=== PATIENT | female | born 2000 | race African-American/Black ===

== ENCOUNTER 2022-07-01 20:35 | Emergency (ER) | payer SELFPAY ==
[~2022-07-01] VITALS: Ht 170.2 cm; Wt 57.7 kg
[2022-07-01 21:24] VITALS: BP 129/75
[2022-07-01] MEDS ORDERED: HYDR-3831 PO (21:27)
== END 2022-07-02 00:07 | disposition left against medical advice (07) ==
LOC: EMS 20:37
DX: Z53.21 Procedure and treatment not carried out due to patient leaving prior to being seen by health care provider (principal)
CPT/HCPCS: 93005